=== PATIENT | male | born 1960 | race Caucasian/White ===

== ENCOUNTER 2019-04-21 01:53 | Emergency (ER) | payer BC, OTHER ==
[~2019-04-21] VITALS: Ht 172.7 cm; Wt 86.2 kg
[~2019-04-21 01:53] MED LIST: DIVA125T2 PO; DIVA500T2 PO; HYDR-3326 PO; LEVO500T2 PO; Metronidazole PO; PREG75CA PO
--- NOTE | 2019-04-21 02:22 | NUR ---
Patient C/O LLQ abdominal pain 8. Patient states he has HX of diverticulitis and ate large dinner which might have caused abdominal pain. Patient states upon arrival pain is 2/10 avalos pain. Denies N/V. Had x1 diarrhea today.
--- NOTE | 2019-04-21 02:33 | NUR ---
Patient discharged to home in stable conditon. Written and verbal after care instructions given. Patient verbalizes understanding of instructions.
[2019-04-22] MEDS ORDERED: LEVO750T21 PO (10:17)
== END 2019-04-21 02:34 | disposition home or self-care (01) ==
LOC: ER 02:02
DX: R10.32 Left lower quadrant pain (principal); I10 Essential (primary) hypertension; F31.9 Bipolar disorder, unspecified; Z79.2 Long term (current) use of antibiotics; Z79.899 Other long term (current) drug therapy
CPT/HCPCS: A4663

== ENCOUNTER 2019-04-22 09:49 | Emergency (ER) | payer OTHER ==
[~2019-04-22] VITALS: Ht 172.7 cm; Wt 86.2 kg
[2019-04-22] MEDS ORDERED: LEVO750T21 PO (10:17)
--- NOTE | 2019-04-22 10:44 | NUR ---
at bedside to see and examine patient.
[2019-04-22] MEDS ORDERED: IV NORMAL SALINE 1000 ML BAG IV ONE (11:00)
[2019-04-22] MEDS ORDERED: KETOROLAC TROMETHAMINE 15 MG INJ IV ONE (11:00)
[2019-04-22] MEDS ORDERED: SWABABLE VALVE TRANSFER SET EA MC ONE (11:01)
[2019-04-22] MEDS ORDERED: IV NORMAL SALINE 250 ML IV ONE (11:01)
[2019-04-22] MEDS ORDERED: IOHEXOL 300MG/ML 100 ML INFUS..BTL ONE (11:01)
[2019-04-22] MEDS ORDERED: KETOROLAC TROMETHAMINE 15 MG INJ ONE (11:03)
[2019-04-22 11:23] LABS: BASOPHILS # (AUTO) 0.1 K/uL (0.0-8.0); BASOPHILS % (AUTO) 0.8 % (0.0-2.0); EOSINOPHILS # (AUTO) 0.1 K/uL (0.0-0.7); EOSINOPHILS % (AUTO) 0.8 % (0.0-7.0); HEMATOCRIT 46.5 % (36.7-47.1); HEMOGLOBIN 15.9 g/dL (12.5-16.3); LYMPHOCYTES # (AUTO) 1.7 K/uL (20.0-40.0); LYMPHOCYTES % (AUTO) 15.1 % (20.5-51.5); MEAN CORPUSCULAR HEMOGLOBIN 32.3 uug (23.8-33.4); MEAN CORPUSCULAR HGB CONC 34 g/dL (32.5-36.3); MEAN CORPUSCULAR VOLUME 94.6 fL (73.0-96.2); MONOCYTES # (AUTO) 1.5 K/uL (2.0-10.0); MONOCYTES % (AUTO) 13.5 % (0.0-11.0); NEUTROPHILS % (AUTO) 69.8 % (38.5-71.5); PLATELET COUNT (AUTO) 239 K/uL (152-348); RED BLOOD CELL COUNT(AUTO) 4.92 MIL/uL (4.06-5.63); WHITE BLOOD COUNT (AUTO) 11.4 K/uL (3.6-10.2)
[2019-04-22 11:30] LABS: POTASSIUM 4.1 mmol/L (3.5-5.1)
[2019-04-22 11:35] LABS: BILIRUBIN,DIRECT 0.1 mg/dL (0.0-0.2); BILIRUBIN,TOTAL 0.9 mg/dL (0.2-1.0); TOTAL PROTEIN, SERUM 7.3 g/dL (6.4-8.2)
--- NOTE | 2019-04-22 11:52 | NUR ---
Patient care endorse to [facility] Cedeno who will continue with care. IV saline still running to [facility].
[2019-04-22 12:41] VITALS: BP 141/89
== END 2019-04-22 12:40 | disposition home or self-care (01) ==
LOC: ER 09:49
DX: K57.32 Diverticulitis of large intestine without perforation or abscess without bleeding (principal); I10 Essential (primary) hypertension; F31.9 Bipolar disorder, unspecified; Z79.2 Long term (current) use of antibiotics; Z79.899 Other long term (current) drug therapy
CPT/HCPCS: 36415; 71045; 74177; 80048; 80076; 83605; 83690; 84484; 85025; 85730; 87040 ×2; 93005; 96374; 99284; J1885; Q9967; 70030-TC; A4663; J7030; J7050